=== PATIENT | female | born 1950 | race Caucasian/White ===

== ENCOUNTER 2019-04-20 07:13 | Day surgery (SDC) | payer MEDICARE, BC ==
[~2019-04-20 07:13] MED LIST: Lactated Ringers 1,000 ML IV SCH; Lidocaine 1%/Sod Bicarbonate in NS 8.4% 1 ML Syringe IDERM PRN; Midazolam 1 MG/ML 2 ML SDV ONE; Propofol 200 MG/20 ML SDV ONE; Sodium Chloride 0.9% 10 ML Syringe FLUSH PRN
--- NOTE | 2019-04-20 07:45 | PCM.PREANE ---
Preanesthetic Assessment - Anesthesia/Transfusion/Family Hx Anesthesia History: Prior Anesthesia Without Reaction Family History of Anesthesia Reaction: No Transfusion History: No Prior Transfusion(s) - Review of Systems General: No Symptoms Pulmonary: Cough (s/p bronchitis, coughing at night, asthma uses inhaler), Other Cardiovascular: No Symptoms Gastrointestinal: No Symptoms, Other (occasional heartburn, takes over the counter) Neurological: No Symptoms Other: Reports: Thyroid Problems - Physical Assessment NPO Status Date: 04/20/19 NPO Status Time: 04:20 Weight: 69.9 kg ASA Class: 2 Mental Status: Alert & Oriented x3 Airway Class: Mallampati = 2 Dentition: Reports: Normal Dentition Thyro-Mental Finger Breadths: 3 Mouth Opening Finger Breadths: 3 ROM/Head Extension: Full Lungs: Clear to Auscultation, Normal Respiratory Effort Cardiovascular: Regular Rate, Regular Rhythm - Allergies Allergies/Adverse Reactions: Allergies Allergy/AdvReac Type Severity Reaction Status Date / Time acetaminophen [From Percocet] AdvReac Syncope Verified 04/19/19 11:14 nitrofurantoin AdvReac Nausea and Verified 04/19/19 11:14 Vomiting oxycodone [From Percocet] AdvReac Syncope Verified 04/19/19 11:14 - Blood Blood Available: No Product(s) Available: None - Anesthesia Plan Pre-Op Medication Ordered: None - Acknowledgements Anesthesia Type Planned: MAC Pt an Appropriate Candidate for the Planned Anesthesia: Yes Alternatives and Risks of Anesthesia Discussed w Pt/Guardian: Yes Pt/Guardian Understands and Agrees with Anesthesia Plan: Yes PreAnesthesia Questionnaire HEENT History: Reports: Impaired Vision, Other (See Below) Other HEENT History: dry eye, wears glasses, growth removed from left eye Cardiovascular History: Reports: None Respiratory History: Reports: Asthma, Bronchitis, Recurrent, Other (See Below) Other Respiratory History: cough Gastrointestinal History: Reports: Diverticulosis, Pancreatitis Genitourinary History: Reports: Other (See Below) Other Genitourinary History: dysuria, [employer] History: Reports: , Other (See Below) Other OB/BYN History: , vaginal dryness Musculoskeletal History: Reports: Arthritis, Back Pain, Chronic, Osteoarthritis Neurological History: Reports: None Psychiatric History: Reports: None Endocrine/Metabolic History: Reports: Hypothyroidism, Osteopenia Hematologic History: Reports: Anemia Immunologic History: Reports: None Oncologic (Cancer) History: Reports: None Dermatologic History: Reports: Eczema - Past Surgical History Head Surgeries/Procedures: Reports: None HEENT Surgical History: Reports: Tonsillectomy Cardiovascular Surgical History: Reports: None Respiratory Surgical History: Reports: None GI Surgical History: Reports: Appendectomy, Colonoscopy Female Surgical History: Reports: Breast Biopsy, Tubal Ligation Male Surgical History: Reports: None Endocrine Surgical History: Reports: None Neurological Surgical History: Reports: None Musculoskeletal Surgical History: Reports: Knee Replacement Other Musculoskeletal Surgeries/Procedures:: bilateral knee replacements Oncologic Surgical History: Reports: None Dermatological Surgical History: Reports: None - SUBSTANCE USE Smoking Status *Q: Never Smoker Recreational Drug Use History: No - HOME MEDS Home Medications: Home Meds Acetaminophen [Tylenol Extra Strength] 500 mg PO Q4H PRN 04/19/19 [History] Albuterol Sulfate [Albuterol Sulfate Hfa] 1 puff INH Q4H PRN 04/19/19 [History] Calcium Carb/Vitamin D3/Vit K1 [Calcium + D Soft Chewable Tab] 1 tab PO DAILY [History] Cholecalciferol (Vitamin D3) [Vitamin D3] 5,000 unit PO DAILY 04/19/19 [History] Fluticasone/Vilanterol [Breo Ellipta 100-25 MCG Inhalation Kit] 1 puff INH DAILY 04/19/19 [History] Levothyroxine Sodium [Synthroid] 75 mcg PO DAILY 04/19/19 [History] Lifitegrast [Xiidra] 1 drop EYEBOTH BID 04/19/19 [History] Promethazine HCl/Codeine [Promethazine-Codeine Syrup] 5 - 10 ml PO ASDIRECTED PRN 04/19/19 [History] estradioL [Estradiol] 10 mcg VAG ASDIRECTED 04/19/19 [History] guaiFENesin [Mucinex] 600 mg PO BID PRN 04/19/19 [History] - CURRENT (IN HOUSE) MEDS Current Meds: Current Medications Lactated Ringer's (Ringers, Lactated) 1,000 mls @ 125 mls/hr IV ASDIRECTED IVA Stop: 04/20/19 23:00 Lidocaine/Sodium Bicarbonate (Buffered Lidocaine 1% In Ns 8.4%) 0.25 ml IDERM ONETIME PRN PRN Reason: Prior to IV Start Stop: 04/20/19 18:00 Sodium Chloride (Saline Flush) 10 ml FLUSH ASDIRECTED PRN PRN Reason: Keep Vein Open Stop: 04/20/19 18:00 Discontinued Medications Midazolam HCl (Versed 1 Mg/Ml) Confirm Administered Dose 2 mg .ROUTE .STK-MED ONE Stop: 04/20/19 07:09 Propofol (Diprivan 20 Ml) Confirm Administered Dose 400 mg .ROUTE .STK-MED ONE Stop: 04/20/19 07:09
--- NOTE | 2019-04-20 08:36 | PCM48HPAN ---
Post Anesthesia Note - EVALUATION WITHIN 48HRS OF ANESTHETIC Vital Signs in Normal Range: Yes Patient Participated in Evaluation: Yes Respiratory Function Stable: Yes Airway Patent: Yes Cardiovascular Function Stable: Yes Hydration Status Stable: Yes Pain Control Satisfactory: Yes Nausea and Vomiting Control Satisfactory: Yes Mental Status Recovered: Yes Vital Signs: Last Vital Signs Temp 36.5 C 04/20/19 07:25 Pulse 66 04/20/19 07:25 Resp 16 04/20/19 07:25 BP 133/68 04/20/19 07:25 Pulse Ox 97 04/20/19 07:25
--- NOTE | 2019-04-20 08:42 | PCM.PRNOTE ---
- Free Text/Narrative Note: Date: 04/20/2019 Procedure: diagnostic colonoscopy Indication: change in bowel habits, abdominal pain, bloating, family history Endoscopist: Jcarlos Steen MD Findings: excellent prep. Moderately challenging endoscopy due to redundancy. Appendiceal orifice visualized. No polyps identified. Mild diverticular disease of sigmoid colon. No hemorrhoids. Detailed Report: The patient was taken to the endoscopy suite and placed in left lateral decubitus position. Monitored anesthesia care was initiated, timeout was performed. Visual inspection of the anus revealed small external hemorrhoidal disease. Digital rectal exam was unremarkable. The lubricated colonoscope was inserted and advanced all the way to the cecum. The appendiceal orifice was visualized. Prep was excellent. The endoscopy was somewhat challenging due to redundancy of the colon. No polyps or other mucosal abnormalities aside from mild diverticular disease in the sigmoid colon was noted. No biopsies were obtained. No significant hemorrhoidal disease was appreciated on retroflexion of the scope in the rectum. The patient tolerated the procedure well. Jcarlos Steen MD General Surgery
--- NOTE | 2019-04-20 11:49 | PCM48HPAN ---
Post Anesthesia Note - EVALUATION WITHIN 48HRS OF ANESTHETIC Vital Signs in Normal Range: Yes Patient Participated in Evaluation: Yes Respiratory Function Stable: Yes Airway Patent: Yes Cardiovascular Function Stable: Yes Hydration Status Stable: Yes Pain Control Satisfactory: Yes Nausea and Vomiting Control Satisfactory: Yes Mental Status Recovered: Yes Vital Signs: Last Vital Signs Temp 36.6 C 04/20/19 08:50 Pulse 63 04/20/19 08:50 Resp 16 04/20/19 08:50 BP 124/76 04/20/19 08:50 Pulse Ox 100 04/20/19 08:50
== END 2019-04-20 09:12 | disposition home or self-care (01) ==
LOC: JD.SDS 07:13
PROVIDERS: ATTEND Surgery
DX: K57.90 Diverticulosis of intestine, part unspecified, without perforation or abscess without bleeding (principal); K64.4 Residual hemorrhoidal skin tags; Q43.8 Other specified congenital malformations of intestine; J45.901 Unspecified asthma with (acute) exacerbation; M17.0 Bilateral primary osteoarthritis of knee; Z80.0 Family history of malignant neoplasm of digestive organs; Z87.39 Personal history of other diseases of the musculoskeletal system and connective tissue; Z88.1 Allergy status to other antibiotic agents; Z88.5 Allergy status to narcotic agent; Z79.2 Long term (current) use of antibiotics; Z79.52 Long term (current) use of systemic steroids; Z79.899 Other long term (current) drug therapy
CPT/HCPCS: 45378; J2704; J7120; 00811; J2250